=== PATIENT | male | born 1945 | race Caucasian/White ===

== ENCOUNTER 2018-05-12 14:48 | Outpatient (CLI) | payer MEDICARE | END 2018-05-12 14:49 | disposition home or self-care (01) | LOC: CARDIO 14:48 ==

== ENCOUNTER 2018-08-04 14:37 | Outpatient (CLI) | payer MEDICARE | END 2018-08-04 14:38 | disposition home or self-care (01) | LOC: CARDIO 14:38 ==

== ENCOUNTER 2018-08-13 07:27 | Outpatient (CLI) | payer MEDICARE | END 2018-08-13 07:28 | disposition home or self-care (01) | LOC: CARDIO 07:27 ==